=== PATIENT | male | born 1950 | race Caucasian/White ===

== ENCOUNTER → 2017-10-26 | Outpatient (CLI) | payer MEDICARE, BC | LOC: GMAL 17:49 | PROVIDERS: ATTEND Family Medicine | DX: N39.0 Urinary tract infection, site not specified (principal); M54.08 Panniculitis affecting regions of neck and back, sacral and sacrococcygeal region ==

== ENCOUNTER → 2017-10-26 | Outpatient (CLI) | payer MEDICARE, BC | LOC: LAB.O 17:18 | PROVIDERS: ATTEND Family Medicine | DX: Z77.9 Other contact with and (suspected) exposures hazardous to health (principal) ==

== ENCOUNTER → 2017-10-29 | Outpatient (CLI) | payer MEDICARE, BC | LOC: CT 08:00 | PROVIDERS: ATTEND Family Medicine | DX: M54.08 Panniculitis affecting regions of neck and back, sacral and sacrococcygeal region (principal); N28.1 Cyst of kidney, acquired; N20.0 Calculus of kidney; N26.1 Atrophy of kidney (terminal) ==

== ENCOUNTER → 2017-11-02 | Outpatient (CLI) | payer MEDICARE, BC ==
--- NOTE | 2017-10-29 14:09 | CT ---
EXAM DESCRIPTION: Abdomen/Pelvis w/wo Contrast: Computed Tomography. CLINICAL HISTORY: SUSPICIOUS OF RETAINED STONE IN COMMON BILE DUCT COMPARISON: None. TECHNIQUE: Spiral-axial scans at 5.0 mm intervals through the abdomen and pelvis before and after standard dose nonionic IV contrast. Water-soluble oral contrast was given prior to the pre-IV contrast scans. Coronal and sagittal 2.0 mm reconstructions. No delayed images. No adverse reactions. Total Exam DLP 2355.67 mGy - cm. This exam was performed according to our departmental CT dose-optimization program which includes automated exposure control, adjustment of the mA and/or kV according to patient size and/or use of iterative reconstruction technique; to reduce radiation dose to as low as reasonably achievable (ALARA). FINDINGS: Lung bases and pleura: Negative. Liver, Stomach, Spleen, Adrenal Glands: A string of oral contrast is noted abutting the medial mucosa of the second portion of the duodenum associated with distended lumen which terminates in fluid density that does not change from the pre-IV to post-IV scans. This fluid measures approximately 3 x 2 mm and also distends the duodenal lumen. The remainder of the duodenum is normal in caliber and density. Minimal intrahepatic biliary dilatation. Air density in the mikayla hepatis where gallbladder was previously located. The distal common bile duct may have a thickened wall with low-density in the lumen. Pancreas is unremarkable. Stomach negative, other solid organs are unremarkable. Kidneys and Ureters: Prominent right extrarenal pelvis. Probable parapelvic cysts but cannot exclude mild hydronephrosis. 2 mm radiodense stone in the inferior collecting system and 3.5 mm radiodense stone in the mid collecting system. Most likely parapelvic cysts in the left kidney with normal size of the renal pelvis. Minimal left renal cortical atrophy. Bilateral ureters normal caliber with no contrast or radiodense stones. Mesentery: Pararenal fatty density stable bilaterally. No free air or free fluid. Aorta: Tortuous with no significant amount of calcification and normal caliber. Small Bowel: Contains oral contrast distal jejunum and ileum no distention or air-fluid levels. Terminal Ileum/Cecum: Normal caliber TI and colon. Thickening of the mid and distal appendix measuring 10 mm greatest diameter and wall thickness 2.5 mm. No significant enhancement or fatty stranding or fluid collection around the appendix. No gas in the ligament or radiodense stones or contrast. Colon: Oral contrast reaches the descending colon and minimal contrast in the rectosigmoid. No dilation mucosal thickening or significant diverticular disease. Pelvic Organs: Prostate gland abutting the urinary bladder and seminal vesicles with minimal impression on the base of the urinary bladder. Spine and Bony Pelvis: Minimal hip joint space narrowing bilaterally. Narrowing of the L5-S1 disc space. Almost 1 cm round sclerotic lesion in the inferior lateral right iliac wing. Slightly smaller sclerotic lesion in the anterior superior right acetabulum. No other sclerotic lesions seen in the included pelvis, femoral heads are lumbosacral spine. Abdominal Wall/Back Soft Tissues: Bilateral fatty inguinal hernias not containing bowel. Minimal diastases at the umbilicus but not containing bowel. IMPRESSION: 1. Distention of the proximal duodenum by duodenal contents and fluid which may represent undigested food. Oral contrast along the mucosal lining abutting this tissue. Cannot exclude intraluminal or eccentric mucosal mass. If duodenal lesion is suspected clinically, consider upper GI examination or endoscopy. Most of the oral contrast is in the small bowel and stomach distal to this lesion. 2. Common bile duct with minimal wall thickening and low-density in the lumen. No significant distention. If stone suspected in the common bile duct, consider MRCP or ERCP. Minimal intrahepatic biliary dilatation. No pancreatic duct dilation. Pancreas is negative. 3. Bilateral parapelvic cysts in the kidney with prominent right extrarenal pelvis. No definite hydronephrosis. 2 radiodense stones in the right kidney. Mild cortical atrophy in the right kidney. Cannot exclude soft tissue pelvic ureteral obstructions bilaterally. Ureters are unremarkable. Consider follow-up CT scan of the kidneys and ureters with IV contrast and delayed images. 4. Elongated dilated appendix with thickened aguilar, no intraluminal gas or radiodense contrast or stones. No significant surrounding fatty stranding or fluid. This could represent chronic appendicitis or previous acute appendicitis without progression. Correlate with clinical findings. 5. Sclerotic lesion in the inferior right iliac wing and the anterior superior right acetabulum. These could represent benign sclerotic lesions are sclerotic metastatic lesions such as prostate gland. No other sclerotic lesions are noted in the included bony structures. Consider clinical evaluation of the prostate gland and radionuclide bone imaging with focus on the pelvic bone along with total body images. Electronically signed by: Víctor Costa MD 10/29/2017 2:08 PM CDT
--- NOTE | 2017-11-02 11:20 | US ---
EXAM DESCRIPTION: Abdomen,Complete CLINICAL HISTORY: ABD PAIN COMPARISON: CT abdomen and pelvis October 29, 2017 TECHNIQUE: Complete abdominal ultrasound FINDINGS: Pancreas is not seen due to overlying bowel gas. Normal caliber of the aorta. Normal appearance of the inferior vena cava. Liver parenchyma is homogeneous in texture with normal echogenicity. No liver mass or intrahepatic bile duct dilatation. No liver surface irregularity. Normal appearance of hepatic veins and portal vein. Gallbladder is not seen, centrally surgically absent. Common bile duct is normal in caliber measuring 4.0 mm. The right kidney measures 11.9 cm in length. Normal renal cortical echogenicity. The renal cortical thickness appears decreased near the upper pole consistent with focal scarring. No solid appearing right renal mass or shadowing stone. Lucency in the pelvis is consistent with prominent parapelvic cysts. This was seen on previous CT. This appearance is not thought to represent hydronephrosis. Spleen is normal in size. No focal splenic lesion. The left kidney measures 12.1 cm in length. Normal renal cortical echogenicity. The renal cortical thickness appears normal. No left renal mass nor shadowing stone. Smaller parapelvic cysts in the hilum of the left kidney are present. This appearance is not thought likely to represent hydronephrosis. IMPRESSION: Bilateral parapelvic renal cysts. Electronically signed by: Simón Jaquez MD 11/02/2017 11:18 AM CDT
== END ==
LOC: US 08:00
PROVIDERS: ATTEND Family Medicine
DX: M54.08 Panniculitis affecting regions of neck and back, sacral and sacrococcygeal region (principal); N28.1 Cyst of kidney, acquired

== ENCOUNTER → 2017-11-05 | Outpatient (CLI) | payer MEDICARE, BC | LOC: GMAL 12:28 | PROVIDERS: ATTEND Family Medicine | DX: Z12.5 Encounter for screening for malignant neoplasm of prostate (principal) ==

== ENCOUNTER 2019-11-19 10:11 | Observation (INO) | payer MEDICARE ==
[2019-11-19] MEDS ORDERED: fentaNYL CITRATE INJ 50 MCG/ML AMP IV ONE (10:29)
[2019-11-19] MEDS ORDERED: SODIUM CHLORIDE 0.9% 1000ML 1,000 ML IVS ONE (10:32)
[2019-11-19] MEDS ORDERED: ONDANSETRON INJ 4 MG/2 ML VIAL IV ONE ×2 (10:35→12:18)
--- NOTE | 2019-11-19 10:35 | ED.PDOC ---
History of Present Illness - General Chief Complaint: Abdominal Pain Time Seen by Provider: 11/19/19 10:24 - History of Present Illness Initial Comments: 69 yo male with recurrent common bile duct stones comes in with abdominal pain since 2 Am. Comes in with acute abdominal pain that woke him from his sleep at 2 AM. States he has had this pain before and it was common bile duct stones. Has had a cholecystectomy, but continues to get frequent common bile duct stones. Was originally sent to [facility], but sent to [place] to see Dr. Jose. Daugherty has placed 2 stents for this in the past, but currently he has no stents. Patient states he has a very small common bile duct, so this has been a reoccurring issue since 2014. Other than sob/n/v/pain. States he gets the episodes frequently, last one was 2 weeks ago. Has not called to follow up with Dr. Jose. Allergies/Adverse Reactions: Allergies Penicillins Allergy (Verified 11/19/19 10:41) Home Medications: Ambulatory Orders NK 11/19/19 Review of Systems - Review of Systems Constitutional: States: chills, malaise. Denies: diaphoresis, fever EENTM: Denies: eye pain, blurred vision, tearing Respiratory: States: short of breath. Denies: cough, orthopnea, stridor Cardiology: Denies: chest pain, edema, palpitations, syncope Gastrointestinal/Abdominal: States: abdominal pain, nausea, vomiting. Denies: diarrhea Genitourinary: Denies: discharge, dysuria, frequency Musculoskeletal: Denies: back pain, gout, joint pain, joint swelling, muscle pain, muscle stiffness Skin: Denies: change in color, dryness Neurological: Denies: anxiety, depressed, headache, numbness Endocrine: Denies: flushing Hematologic/Lymphatic: Denies: anemia All other Systems: Reviewed and Negative Family Medical History - Family History Mother Family History: Unknown Living Status: Unknown Physical Exam - Physical Exam General Appearance: Alert, Ill Appearing, Well Developed, Well Groomed Eye Exam: bilateral normal Ears, Nose, Throat: normal ENT inspection Neck: full range of motion, supple, normal inspection Respiratory: chest non-tender, lungs clear, normal breath sounds, no respiratory distress, no accessory muscle use Cardiovascular/Chest: normal peripheral pulses, no edema, no murmur, tachycardia Peripheral Pulses: radial,right: 2+, radial,left: 2+ Gastrointestinal/Abdominal: soft, no organomegaly, no pulsatile mass, tenderness, other - voluntary gaurding Rectal Exam: deferred Back Exam: normal inspection, no CVA tenderness, no vertebral tenderness Extremity: normal range of motion, non-tender Neurologic: medication specialist II-XII nml as tested, no motor/sensory deficits, alert Skin Exam: normal color, warm/dry Progress - Progress Progress: Vitals were all unremarkable, until 5 minutes after arrival patient had moderate amount of yellow/light green emesis. He briefly was awake, but not responding, no loss of pulses. Shortly after emesis he became hypoxic saturations 85%, we got a CTA chest and abdomen which was negative. CBC showed WBC 14, but otherwise unremarkable. lactic acid wnl. CMP showed a bili 1.5 but remaining liver enzymes were wnl. EKG shows NSR with rate 79, Left axis deviation, RBBB, no evidence of stemi. We have given him morphine, IVF, cipro and flagyl bc he's allergic to pcn. I called vocational training instructor doctor for Dr. Jose, Dr. Sams who states Dr. Jose is not in house for the next week and he does not have abilities to do ERCP. Pain has now resolved, but he continues to be hypoxic. Patient is stable and improved. Will admit for aspiration pneumonitis. The data reviewed when caring for this patient included: nurse notes etc. The history and assessments from nurses notes were reviewed and considered, and the patient's home medication list was also reviewed and considered. My assessment and the results of testing completed here in the ED were discussed with the patient/family. All questions were answered, and they express understanding of my assessment and the plan. Patient was admitted for observation. He is to call his GI doc in AM to set up follow up appointment, should he have recurrent abdominal pain he should be transferred where there is ERCP capabilities. Billing cod [id number] 11/19/19 14:26 11/19/19 16:09 11/19/19 16:16 - Additional EKG/XRAY/Consults Consult/PCP: Dr. Sams GI in [place] Departure - Departure Clinical Impression: Aspiration into respiratory tract, Abdominal pain Disposition: Discharge to Home or Self Care Condition: Good Home Medications: Ambulatory Orders NK 11/19/19 Decision To Admit - Decistion To Admit Decision to Admit Date: 11/19/19 - admit to [facility]
[2019-11-19] MEDS ORDERED: metroNIDAZOLE IV PREMIX 500MG 500 MG in PREMIX BAG 1 BAG IVPB ONE (11:58)
[2019-11-19] MEDS ORDERED: CIPROFLOXACIN 500 MG TAB (ER DISPENSE) PO ONE (11:59)
[2019-11-19] MEDS ORDERED: MORPHINE SULFATE INJ 10 MG/ML VIAL IV ONE (12:00)
[2019-11-19] MEDS ORDERED: CIPROFLOXACIN 500 MG TAB PO ONE (12:28)
--- NOTE | 2019-11-19 13:31 | CT ---
EXAM: CTA chest with contrast CLINICAL INDICATION: Chest pain, shortness of breath COMPARISON: None. TECHNIQUE: CTA of the chest was performed using contiguous axial 2.5mm postcontrast sections through the chest including IV contrast with 3-D reconstructions. This exam was performed according to our departmental dose-optimization program, which includes automated exposure control, adjustment of the mA and/or kV according to patient size and/or use of iterative reconstruction technique. FINDINGS: There is no evidence of pulmonary embolism. There are no findings to suggest aortic dissection. There are no enlarged mediastinal or hilar lymph nodes. The visualized portions of the upper abdominal structures are unremarkable except for peripelvic cysts in the bilateral kidneys. The lungs are clear except for mild bibasilar dependent subsegmental atelectasis. IMPRESSION: No evidence of pulmonary embolism or other acute process in the chest at this time. Electronically signed by: Jaiden Palencia MD 11/19/2019 1:29 PM CDT
--- NOTE | 2019-11-19 13:39 | CT ---
EXAM: Abdomen/Pelvis w/Contrast CLINICAL INDICATION: Abdominal pain. COMPARISON: 10/29/2017 TECHNIQUE: The CT scan was done using contiguous axial 5 mm postcontrast sections through the abdomen and pelvis including IV contrast. This exam was performed according to our departmental dose-optimization program, which includes automated exposure control, adjustment of the mA and/or kV according to patient size and/or use of iterative reconstruction technique. FINDINGS: The visualized portions of the lung bases contain mild subsegmental atelectasis but are otherwise clear. The gallbladder is surgically absent. The liver, spleen, pancreas, and adrenal glands have a normal CT appearance. There are multiple peripelvic cysts in both kidneys. There is a 3 mm nonobstructing stone in the right lower renal pole and a 5.0 x 4.0 mm nonobstructing stone in the right upper renal pole. There is no ureteral stone or hydronephrosis on either side. The kidneys are otherwise unremarkable. There are no dilated loops of small bowel. There is no free air, free fluid, or abscess. The appendix is not identified. IMPRESSION: 1. No evidence of an acute intra-abdominal process. 2. Nonobstructing stones in the right kidney. Electronically signed by: Jaiden Palencia MD 11/19/2019 1:37 PM CDT
--- NOTE | 2019-11-19 17:02 | HP ---
SUPERVISING PHYSICIAN: [place] Bran[place] MD CHIEF COMPLAINT: Abdominal pain. HISTORY OF PRESENT ILLNESS: This is a 69-year-old male patient who has a significant history of a narrowed common bile duct status post cholecystectomy as well as multiple bile duct stents. He presented to the Emergency Room with severe right upper quadrant abdominal pain. He has had this multiple times in the past and has required stents of his bile duct. They have had to be removed and every time they are removed, he has these abdominal pains. He sees Dr. Jose in [place]. The ER doctor called Dr. Jose's office and felt he was fine for staying overnight in the hospital. There were no orders given except for him to call Dr. Jose's office in the morning for followup. The patient says he gets these same symptoms about once a month when there are no stents present. He did have one episode of nausea and vomiting in the ER and shortly after, he become slightly unresponsive. His oxygen saturations dropped to 85%. Otherwise, his vital signs were stable and CT of the chest was done which showed no evidence of acute pulmonary embolism or other acute process in the chest. He also had an abdomen and pelvis CT done that reported 1) No evidence of acute intraabdominal process. 2) Nonobstructing stones in the right kidney. His lab work was done. WBCs were elevated at 14,000 with hemoglobin 14.3, hematocrit 40.7. He had had a left shift on his differential. Sodium 136, potassium 3.5, chloride 107, BUN 14, creatinine 1.43, lactic acid 1.2, total bilirubin 1.5, alkaline phosphatase 123, troponin less than 0.02. He was given a dose of Cipro as well as Flagyl in the ER. He was also given Zofran and some morphine as well as fentanyl. Due to the syncopal episode as well as his low oxygen saturation, I was called for hospital admission. PAST MEDICAL HISTORY: 1. Right lung collapse in 1952. 2. Gastroesophageal reflux disease. 3. Macular degeneration. The patient is legally blind. 4. Hypertension. PAST SURGICAL HISTORY: 1. Appendectomy. 2. Right knee surgery. 2. Cataracts. OUTPATIENT MEDICATIONS: Per the EMR and awaiting verification. ALLERGIES: PENICILLIN. FAMILY HISTORY: Positive for Alzheimer's breast cancer, uterine cancer, Crohn's disease. SOCIAL HISTORY: He is retired. 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 He is and has two children. He denies any ETOH, tobacco or illicit drug use. REVIEW OF SYSTEMS: All negative except as per history of present illness. There are no complaints at the time of examination once he was admitted to the hospital. PHYSICAL EXAMINATION: VITAL SIGNS: Temperature 97.7, heart rate 74, blood pressure 111/70, respiratory rate 18, O2 saturation 98% on room air. GENERAL: This is a 69-year-old patient lying in his hospital bed. He is in no acute distress. HEENT: Normocephalic, atraumatic. Pupils are equal and reactive. Oropharynx is clear. NECK: Supple without mass. RESPIRATORY: Essentially clear to auscultation bilaterally. CHEST: There is equal rise and fall of the chest with inspiration and expiration. CARDIOVASCULAR: Regular rate and rhythm. GASTROINTESTINAL: Abdomen is soft, nondistended. It is mildly tender in the right upper quadrant, but otherwise nontender. Bowel sounds are positive. NEUROLOGIC: Awake, alert and oriented times three. Cranial nerves II-XII are grossly intact as tested. LABORATORY: Labs and films are as per history of present illness. IMPRESSION: 1. Hypoxia after a brief loss of consciousness. 2. Abdominal pain with significant history of pain due to clogged bile duct. He is status post cholecystectomy as well as multiple stents to the bile duct. 3. Gastroesophageal reflux disease. 4. Macular degeneration. He is legally blind. PLAN: We will place the patient in observation. We will monitor his neuro status overnight as well as his O2 saturations. According to his GI doctor in [place], he is to call for a followup as soon as he is out of the hospital in the morning. Initially, I had made him NPO, but since he had no further nausea, vomiting or abdominal pain, we will give him some bland diet and repeat his labs in the morning. I have also put him on proton pump inhibitor for ulcer prophylaxis. Hopefully, he can be discharged tomorrow, so I will hold off on DVT prophylaxis. We will continue to monitor the patient closely and follow as needed. #[id number] [facility]
[2019-11-19] MEDS ORDERED: SODIUM CHLORIDE 0.9% (FLUSH) 10 ML SYG IV PRN (17:18)
[2019-11-19] MEDS ORDERED: MORPHINE SULFATE INJ 10 MG/ML VIAL IV PRN (17:20)
[2019-11-19] MEDS ORDERED: ONDANSETRON INJ 4 MG/2 ML VIAL IV PRN (17:20)
[2019-11-19] MEDS ORDERED: PROMETHAZINE HCL INJ 25 MG in SODIUM CHLORIDE 0.9% 50ML 50 ML IVPB PRN (17:23)
[2019-11-19] MEDS ORDERED: IV SET AND CAP CHANGE INJ INJ SCH (17:30)
[2019-11-19] MEDS ORDERED: PANTOPRAZOLE SODIUM IV 40 MG VIAL ONE (18:59)
[2019-11-19] MEDS ORDERED: KCL 20MEQ/D5 1/2NS 1,000 ML IVS ONE (19:00)
[2019-11-19] MEDS: KCL 20MEQ/D5 1/2NS 1,000 ML IVS PRN (19:15)
[2019-11-19] MEDS ORDERED: cloNIDine HCL 0.1 MG TAB ONE (20:32)
[2019-11-19] MEDS ORDERED: LISINOPRIL 10 MG TAB ONE (20:32)
[2019-11-20] MEDS: KCL 20MEQ/D5 1/2NS 1,000 ML IVS PRN ×2 (02:58→11:38)
[2019-11-20] MEDS ORDERED: cefTRIAXone SODIUM 1 GM in SODIUM CHL 0.9% 50ML MIN-BAG+ 50 ML IVPB SCH (04:00)
[2019-11-20] MEDS ORDERED: SODIUM CHL 0.9% 50ML MIN-BAG+ 50 ML IVPB ONE (04:00)
[2019-11-20] MEDS ORDERED: cefTRIAXone SODIUM 1 GM VIAL ONE (04:00)
[2019-11-20] MEDS: PANTOPRAZOLE SODIUM IV 40 MG VIAL IV SCH (06:08)
--- NOTE | 2019-11-20 07:05 | RAD ---
EXAM: XR Chest, 2 Views CLINICAL HISTORY: hypoxia TECHNIQUE: Frontal and lateral views of the chest. COMPARISON: 11/19/2019. FINDINGS: Lungs: Stable coarse interstitial thickening. Slight increased right middle and lower lobe atelectasis. Pleural space: Unremarkable. No pneumothorax. Heart: Stable cardiac shadow. Mediastinum: Unremarkable. Bones/joints: Unremarkable. IMPRESSION: Stable coarse interstitial thickening. Slight increased right middle and lower lobe atelectasis. Electronically signed by: Rachael Lewis MD 11/20/2019 7:04 AM CDT
[2019-11-20] MEDS ORDERED: SODIUM CHLORIDE 0.9% (FLUSH) 10 ML SYG IV ONE (12:16)
[2019-11-20] MEDS: metroNIDAZOLE IV PREMIX 500MG 500 MG in PREMIX BAG 1 BAG IVPB SCH ×2 (12:23→20:23)
[2019-11-20] MEDS ORDERED: levoFLOXacin 500MG IV 100 ML IVPB ONE (12:26)
[2019-11-20] MEDS: levoFLOXacin 500MG IV 500 MG in PREMIX BAG 1 BAG IVPB SCH (13:11)
--- NOTE | 2019-11-20 18:14 | PN ---
SUPERVISING PHYSICIAN: Brent Tucker M.D. DATE: 10/2719 SUBJECTIVE: The patient has not had any pain since admission. He did have a positive blood culture last night which showed a gram negative jose martin preliminary on the gram stain. He has had no fever. No nausea or vomiting. OBJECTIVE: VITAL SIGNS: Temperature 98.5, pulse 74, blood pressure 121/68, respirations 18, satting 94% on room air. GENERAL: The patient is resting comfortably. Does not appear to be in any acute distress. CHEST: Lung sounds are clear to auscultation bilaterally. HEART: Regular rate and rhythm. ABDOMEN: Soft, non-tender. Positive bowel sounds. EXTREMITIES: Without any edema. NEUROLOGIC: He is alert and oriented times three. LABORATORY: White count now has normalized to 9,700, hemoglobin 14, hematocrit 39.9, platelet count 234,000. Differential shows resolving left shift. Chemistries show normal electrolytes with BUN 11, creatinine 1.22. Blood sugar was 117, lactic acid 1.2 last night with bilirubin today at 1.5. AST, ALT and alkaline phosphatase were normal. Lipid panel showed triglycerides of 34, cholesterol 130, LDL was 43 and HDL 61. Amylase and lipase were both normal from last night's specimen. Urinalysis today showed to be within normal limits with no signs of infectious process. Blood culture: He had a positive blood culture in the anaerobic bottle for a gram negative jose martin preliminary on gram stain. RADIOLOGY: Chest x-ray per radiology interpretation shows stable coarse interstitial thickening with slight increase right middle and lower lobe atelectasis. ASSESSMENT: 1. Gram negative jose martin bacteremia, etiology uncertain, possibly related to common bile duct with the patient having a history of choledocholithiasis in the past requiring stent placement. 2. Gastroesophageal reflux disease. 3. Macular degeneration with the patient being legally blind. PLAN: I did try to discuss the case with his GI specialist but was unable to do so as Dr. Jose actually has not seen the patient other than just doing an ERCP. He was seen previously at [place] by Dr. Martinez. Review of his records showed that he has not seen a GI specialist since the first of last year. I did discuss CT findings with Dr. Costa, the radiologist here, who did not see any other additional findings other than what was reported on the initial reading. I also discussed the case with Dr. Rivera, Dr. Branham and Dr. Tucker. At this point, the plan of care is to continue with coverage for gram negative jose martin bacteremia with Levaquin and Flagyl. As soon as the patient has a completed culture and sensitivity so that we can target antibiotic therapy with oral antibiotics, will discharge home to followup with Dr. Rivera and Dr. Tucker next week as well as schedule for an outpatient MRCP on discharge. At this point he is showing to be stable and will await those culture results. Until we can transition to outpatient management will continue to monitor and treat as needed. #[id number] [facility]
[2019-11-20] MEDS ORDERED: INSULIN LISPRO 100 UNITS/ML PEN SUBCU ONE (21:00)
[2019-11-20] MEDS ORDERED: ACETAMINOPHEN 325 MG TAB PO PRN (23:25)
[2019-11-20] MEDS ORDERED: KCL 20MEQ/0.45% NS 1,000 ML IVS ONE (23:26)
[2019-11-21] MEDS ORDERED: cefTRIAXone SODIUM 2 GM in SODIUM CHL 0.9% 100ML MINI-BAG 100 ML IVPB SCH (04:00)
[2019-11-21] MEDS: metroNIDAZOLE IV PREMIX 500MG 500 MG in PREMIX BAG 1 BAG IVPB SCH ×2 (04:05→12:05)
[2019-11-21] MEDS: PANTOPRAZOLE SODIUM IV 40 MG VIAL IV SCH (06:07)
[2019-11-21] MEDS ORDERED: MAGNESIUM HYDROXIDE 30 ML UD PO ONE (12:09)
[2019-11-21] MEDS: levoFLOXacin 500MG IV 500 MG in PREMIX BAG 1 BAG IVPB SCH (13:17)
[2019-11-21 15:01] VITALS: BP 124/68; TEMP 98.1; O2SAT 95
[2019-11-21] MEDS ORDERED: levoFLOXacin 500 MG TAB PO SCH (15:30)
[2019-11-22] MEDS ORDERED: PANTOPRAZOLE SODIUM TAB 40 MG PO SCH (06:30)
--- NOTE | 2019-11-28 14:24 | DS ---
SUPERVISING PHYSICIAN: Brent Tucker MD ADMISSION DIAGNOSIS: 1. Hypoxia after a brief loss of consciousness. 2. Abdominal pain with significant history of pain due to clogged bile duct. He is status post cholecystectomy as well as multiple stents to the bile duct. 3. Gastroesophageal reflux disease. 4. Macular degeneration. He is legally blind. DISCHARGE DIAGNOSIS: 1. Gram negative jose martin bacteremia, etiology uncertain with final cultures results showing a Klebsiella pneumoniae that was pansensitive essentially to all but ampicillin. It was sensitive to Levaquin. Please see that report for details. 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 2. Gastroesophageal reflux disease. 3. Macular degeneration with the patient being legally blind. REASON FOR HOSPITALIZATION: This is a 69-year-old male patient who has a significant history of a narrowed common bile duct status post cholecystectomy as well as multiple bile duct stents. He presented to the Emergency Room with severe right upper quadrant abdominal pain. He has had this multiple times in the past and has required stents of his bile duct. They have had to be removed and every time they are removed, he has these abdominal pains. He sees Dr. Jose in [place]. The ER doctor called Dr. Jose's office and felt he was fine for staying overnight in the hospital. There were no orders given except for him to call Dr. Jose's office in the morning for followup. The patient says he gets these same symptoms about once a month when there are no stents present. He did have one episode of nausea and vomiting in the ER and shortly after, he become slightly unresponsive. His oxygen saturations dropped to 85%. Otherwise, his vital signs were stable and CT of the chest was done which showed no evidence of acute pulmonary embolism or other acute process in the chest. He also had an abdomen and pelvis CT done that reported 1) No evidence of acute intraabdominal process. 2) Nonobstructing stones in the right kidney. His lab work was done. WBCs were elevated at 14,000 with hemoglobin 14.3, hematocrit 40.7. He had had a left shift on his differential. Sodium 136, potassium 3.5, chloride 107, BUN 14, creatinine 1.43, lactic acid 1.2, total bilirubin 1.5, alkaline phosphatase 123, troponin less than 0.02. He was given a dose of Cipro as well as Flagyl in the ER. He was also given Zofran and some morphine as well as fentanyl. Due to the syncopal episode as well as his low oxygen saturation, I was called for hospital admission. LABORATORY: CBC showed white count on discharge of 9,700, hemoglobin 14, hematocrit 39.4, platelet count 234,000. Differential was without a left shift on discharge. Chemistries showed normal electrolytes. Creatinine 1.22, lactic acid normal at 1.2, calcium 8.2, total bilirubin was elevated initially at 1.5, but was near normal levels at 1.1 on discharge. AST, ALT and alkaline phosphatase were normal at discharge. Troponin was less than 0.02. He did have a little elevated alkaline phosphatase at 123 on admission, but did normalize. Amylase and lipase were within normal limits. Urinalysis was within normal limits. MICROBIOLOGY: Blood cultures positive involving the anaerobic bottle only and that grew out Klebsiella pneumoniae. It was essentially pansensitive only showing resistance to ampicillin. His respiratory panel was negative for all viral and bacterial agents tested, none detected. The rest of his blood cultures remained negative after 5 days. RADIOLOGY: He had a CT of the chest which showed no evidence of pulmonary embolism or other acute process within the chest. He also had an abdominopelvic CT with contrast that showed no evidence of acute intraabdominal process, nonobstructing stones in the right kidney. Chest x-ray on discharge showed stable coarse interstitial thickening, slightly increased in right middle and lower lobe atelectasis. EKG in the Emergency Room showed normal sinus rhythm with right bundle branch block. No ST or T-wave changes noted to indicate acute ischemia. HOSPITAL COURSE: Mr. Shah was admitted and treated for gram negative jose martin bacteremia. The source was actually never identified although question was possible prostate, but urine was clean. He had no other complaints, no signs of actual pneumonia. Given that he had a history of choledocholithiasis and had previous stents, there was concern that he possibly could be having a source of infection resulting from there, however, nothing was shown on the acute imaging that was done prior to discharge. He did have an MRI scheduled for the following Wednesday after discharge. That is still pending. After discussion with Dr. Tucker, it was felt the patient was clinically stable and could be discharged with continued treatment with Levaquin and Flagyl and followup MRI and followup with Dr. Tucker the week after discharge. Again, his MRI is scheduled for 11/27/19. Those results will be referred to Dr. Tucker. He was clinically stable and vital signs showed he was afebrile with temperature 98.1, pulse 74, blood pressure 124/68, respirations 95. He was tolerating an oral diet. He was having no pain, no complaints and was felt clinically stable enough to followup as an outpatient. I did also discuss the case with Dr. Rivera, his primary care provider. PLAN: Mr. Shah was discharged to continue with treatment as an outpatient for treatment of gram negative jose martin bacteremia with prescriptions for Flagyl and Levaquin. He was to resume his usual diet as tolerated, increase activity as tolerated and was scheduled to have an MRI done on the following Wednesday after discharge. He is to followup with Dr. Tucker as Dr. Rivera is out of the office this following week on discharge and told to return to the Emergency Department should he have any concerning symptoms. MEDICATIONS PRESCRIBED ON DISCHARGE: 1. Flagyl 500 mg q.8h., #15, no refills. 2. Levaquin 500 mg, #14, no refills. CONDITION ON DISCHARGE: Stable and improving. DISPOSITION: The patient was discharged home. #[id number] [facility]
== END 2019-11-21 17:55 | disposition home or self-care (01) ==
LOC: ER 10:11 → MS 17:01
PROVIDERS: ADMIT Nurse Practitioner Acute Care; ATTEND Nurse Practitioner Family
DX: R78.81 Bacteremia (principal); B96.89 Other specified bacterial agents as the cause of diseases classified elsewhere; R10.11 Right upper quadrant pain; K21.9 Gastro-esophageal reflux disease without esophagitis; H35.30 Unspecified macular degeneration; H54.8 Legal blindness, as defined in USA; R09.02 Hypoxemia; R11.2 Nausea with vomiting, unspecified; I10 Essential (primary) hypertension; J98.11 Atelectasis; N20.0 Calculus of kidney; I45.10 Unspecified right bundle-branch block; Z90.49 Acquired absence of other specified parts of digestive tract
CPT/HCPCS: 96366 ×3; 96367 ×2; 96365; 96375 ×2; 96376 ×3; J0696; J3010; J1956 ×2; J3490 ×5; J2270; J2405 ×2; J2550; J7030; A4216; J3480; J1815; J7050; 80053 ×2; 80061; 36415 ×6; 82150; 87077; 87186; 81001; 85025 ×2; 87040 ×2; 83690; 84484; 83605; 71046; 71275; 74177; 94760 ×2; 99285; 93005; G0378; 87635

== ENCOUNTER → 2019-11-27 | Outpatient (CLI) | payer MEDICARE ==
--- NOTE | 2019-11-27 14:06 | MRI ---
CLINICAL HISTORY PROVIDED: GASTRO ESOPHAGEAL REFLUX DISEASE TECHNIQUE: Multiplanar, multisequence MR images of the abdomen. MRCP images provided. COMPARISON: November 19, 2019 FINDINGS: Visualized lung bases are unremarkable. Hepatic lesion. No biliary dilatation. Cholecystectomy. Normal caliber portal vein. No biliary filling defect or irregularity. The spleen, pancreas and adrenal glands are unremarkable. Bilateral peripelvic cysts. No hydronephrosis. Normal renal contours. The visualized bowel is unremarkable without evidence of obstruction or focal inflammatory change. No adenopathy. No focal fluid collection. Normal caliber abdominal aorta. No focal marrow signal abnormality. IMPRESSION: Unremarkable MRI abdomen. Electronically signed by: Spencer Mcadams MD 11/27/2019 2:05 PM CDT
== END ==
LOC: MRI 08:00
PROVIDERS: ATTEND Nurse Practitioner Family
DX: K21.0 Gastro-esophageal reflux disease with esophagitis (principal)

== ENCOUNTER → 2019-12-05 | Outpatient (CLI) | payer MEDICARE | LOC: GMAL 17:10 | PROVIDERS: ATTEND Family Medicine | DX: D51.3 Other dietary vitamin B12 deficiency anemia (principal); E83.42 Hypomagnesemia; E55.9 Vitamin D deficiency, unspecified; Z12.5 Encounter for screening for malignant neoplasm of prostate; Z79.899 Other long term (current) drug therapy; I10 Essential (primary) hypertension | CPT/HCPCS: 82607; 83735; 84443; G0103 ==

== ENCOUNTER 2020-01-29 11:05 | Inpatient (IN) | payer MEDICARE ==
[2020-01-29] MEDS ORDERED: ONDANSETRON INJ 4 MG/2 ML VIAL IV ONE ×2 (11:26→17:49)
[2020-01-29] MEDS ORDERED: SODIUM CHLORIDE 0.9% 1000ML 1,000 ML IVS ONE ×3 (11:26→14:30)
[2020-01-29] MEDS ORDERED: SODIUM CHLORIDE 0.9% (FLUSH) 10 ML SYG IV PRN ×2 (11:26→17:45)
--- NOTE | 2020-01-29 11:27 | ED.PDOC ---
History of Present Illness - General Chief Complaint: Abdominal Pain Stated Complaint: abdominal pain Time Seen by Provider: 01/29/20 11:25 Source: patient - History of Present Illness Initial Comments: 69 yo male with PMH of GERD, s/p cholecystectomy (2017) who presents with cc of abdominal pain. Patient reports he had some eggs last night for dinner and went to sleep in his usual state of health. He reports he woke up at 4 AM today with sudden new onset of abdominal pain, located all across the upper abdomen, sharp and "like a muscle cramp", radiates to the, constant with waxing and waning corazon rity, currently 6/10 severity, at worst 10/10 severity earlier, no medications taken for relief. He reports also associated muscular pain throughout his entire body, subjective fevers and chills, nausea with 2 episodes of mild green emesis, mild dyspnea. Denies chest pain, sore throat, leg swelling, or cough. Additionally reports chronic symptoms of nocturia. Patient reports he had his gallbladder removed [address] Ríos in [place]. Since then he has had recurrent episodes similar to now of this pain. He has been seeing Dr. Jose (GI) in at [facility] for this issue. He has had issues with his CBD and has has stents placed before. He recently had ERCP 1 month ago in [place] which was unremarkable. PCP is Dr. Rivera. Allergies/Adverse Reactions: Allergies Penicillins Allergy (Verified 01/29/20 11:22) Home Medications: Ambulatory Orders NK 01/29/20 Review of Systems - Review of Systems Review of Systems: 01/29/20 11:53 as per HPI All other Systems: Reviewed and Negative Past Medical History (General) - Patient Medical History Hx Seizures: No Hx Stroke: No Hx Dementia: No Hx Asthma: No Hx of COPD: No Hx Cardiac Disorders: No Hx Congestive Heart Failure: No Hx Pacemaker: No Hx Hypertension: No Hx Thyroid Disease: No Hx Diabetes: No Hx Gastroesophageal Reflux: No Hx Renal Disease: No Hx Cancer: No Hx of HIV: No Hx Hepatitis C: No Hx MRSA: No MRSA Source:: Wound Surgical History: cholecystectomy - Vaccination History Hx Influenza Vaccination: No Hx Pneumococcal Vaccination: No - Social History Hx Tobacco Use: No Hx Alcohol Use: No Hx Substance Use: No Hx Physical Abuse: No Hx Emotional Abuse: No Family Medical History - Family History Mother Family History: Unknown Living Status: Unknown Physical Exam - Physical Exam General Appearance: Alert, Restless Eye Exam: bilateral normal Ears, Nose, Throat: hearing grossly normal, normal ENT inspection, normal pharynx Neck: non-tender, full range of motion, supple, normal inspection Respiratory: chest non-tender, lungs clear, normal breath sounds, no respiratory distress, no accessory muscle use Cardiovascular/Chest: normal peripheral pulses, no edema, no gallop, no JVD, no murmur, tachycardia Peripheral Pulses: radial,right: 2+, radial,left: 2+ Gastrointestinal/Abdominal: normal bowel sounds, non tender, soft, no organomegaly Back Exam: normal inspection, no CVA tenderness, no vertebral tenderness Extremity: normal range of motion, non-tender, normal inspection, no pedal edema, no calf tenderness, normal capillary refill Neurologic: drafter tool design II-XII nml as tested, no motor/sensory deficits, alert, normal mood/affect, oriented x 3 Skin Exam: normal color, warm/dry Progress - Progress Progress: 01/29/20 11:54 Acute abdominal pain -Sepsis, acute cholangitis, acute pancreatitis, pyelonephritis, UTI, intra- abdominal abscess, gastroenteritis, colitis, ischemic colitis, bowel obstruction, ACS/cardiac, pneumonia, other -Patient with tachycardia upon arrival, afebrile, blood pressure stable -Obtain sepsis work-up, cardiac work-up, abdominal work-up, anticipate CT abdomen pelvis -Place PIV, 2 L normal saline bolus, fentanyl 50 mcg IV, Zofran 4 mg IV 01/29/20 15:30 -Labs concerning for serum WBC 16,000 with left shift, lactate 1.3. CMP reveals total bilirubin 1.8 with 0.5 direct, 1.3 indirect. Alk phos 149, AST and ALT slightly elevated. -CT scan reveals only some evidence of submucosal edema of the Right colon, which is nonspecific and may be evident of colitis. No other acute processes noted. -Surgery consulted here regarding the patient who reviewed the patient's labs and CAT scan. Recommended GI consultation. I placed a phone call to Dr. Jose's clinic in [place] but have not heard back yet. Will try calling them back. Pt remains stable, pt well-controlled. 01/29/20 15:58 -Spoke with Dr. Jose at [facility] who states his ERCP 1 month ago was clean. I informed him of the patient's current state as well as abnormal labs including leukocytosis, elevated bilirubin, elevated alk phos, elevated transaminases. He recommends that the patient be admitted here with IV antibiotics of Levaquin along with IV fluids and as needed medications for pain and nausea. He suggests to trend the LFT's and if worsening or patient's clinical condition worsens then he could be transferred for GI consultation but does not feel transfer is warranted at this point. If pt is improving and labs improving, he may go home on oral Levaquin. Will discuss with our hospitalist here the situation for possible admission. -Dr. Jose provided his phone number in case the hospitalist wanted to reach him at any time. [phone] (cell) 01/29/20 16:09 -Spoke with Naomi Amador who accepts patient for admission. Petar Vera MD Billing #[id number] 01/29/20 11:26 IV Care:Saline Lock per Protoc QSHIFT Sodium Chloride 0.9% (Flush) [Saline Flush Syringe] 10 ml IV PRN PRN 01/29/20 11:30 EKG STAT 01/29/20 12:04 Hold Metformin x 48Hrs [id number] 01/29/20 12:12 BLOOD CULTURE Stat Laboratory Results - last 24 hr 01/29/20 01/29/20 01/29/20 11:25 11:25 12:05 WBC 16.3 H RBC 4.36 L Hgb 14.9 Hct 41.5 L MCV 95.3 H MCH 34.2 H MCHC 35.9 RDW 13.2 Plt Count 243 MPV 7.0 L Absolute Neuts (auto) 15.30 H Absolute Lymphs (auto) 0.40 L Absolute Monos (auto) 0.60 Absolute Eos (auto) 0.00 Absolute Basos (auto) 0.10 Neutrophils % 93.3 H Lymphocytes % 2.5 L Monocytes % 3.8 Eosinophils % 0.0 L Basophils % 0.4 Sodium 136 Potassium 3.4 L Chloride 104 Carbon Dioxide 21 Anion Gap 14.4 BUN 14 Creatinine 1.05 BUN/Creatinine Ratio 13.3 Random Glucose 139 H Serum Osmolality 274.7 L Lactic Acid 1.3 Calcium 9.1 Total Bilirubin 1.8 H Direct Bilirubin 0.5 H Indirect Bilirubin 1.3 H AST 104 H ALT 108 H Alkaline Phosphatase 149 H Serum Total Protein 6.6 Albumin 4.1 Amylase 46 Lipase 27 Urine Color Urine Appearance Urine pH Ur Specific [place] Urine Protein Urine Glucose (UA) Urine Ketones Urine Blood Urine Nitrite Urine Bilirubin Urine Urobilinogen Ur Leukocyte Esterase Urine RBC Urine WBC Ur Epithelial Cells Amorphous Sediment Urine Bacteria Urine Mucus 01/29/20 15:28 WBC RBC Hgb Hct MCV MCH MCHC RDW Plt Count MPV Absolute Neuts (auto) Absolute Lymphs (auto) Absolute Monos (auto) Absolute Eos (auto) Absolute Basos (auto) Neutrophils % Lymphocytes % Monocytes % Eosinophils % Basophils % Sodium Potassium Chloride Carbon Dioxide Anion Gap BUN Creatinine BUN/Creatinine Ratio Random Glucose Serum Osmolality Lactic Acid Calcium Total Bilirubin Direct Bilirubin Indirect Bilirubin AST ALT Alkaline Phosphatase Serum Total Protein Albumin Amylase Lipase Urine Color Yellow Urine Appearance Clear Urine pH 6.5 Ur Specific [place] 1.015 Urine Protein Negative Urine Glucose (UA) Negative Urine Ketones Negative Urine Blood Negative Urine Nitrite Negative Urine Bilirubin Negative Urine Urobilinogen 0.2 Ur Leukocyte Esterase Negative Urine RBC 0-1 Urine WBC 0 Ur Epithelial Cells 0 Amorphous Sediment 1+ Urine Bacteria 0 Urine Mucus Moderate - EKG/XRAY/CT EKG: Sinus - Sinus tachycardia with right bundle branch block, heart rate 110, no ST elevations, Q waves noted in inferior leads likely indicative of prior FL, left axis deviation present, intervals normal, compared to 11/19/2019 EKG appears largely unchanged. Departure - Departure Clinical Impression: Colitis, Transaminitis, Hyperbilirubinemia Time of Disposition: 16:14 Disposition: Admit Patient Condition: Fair Departure Forms: ED Discharge - Pt. Copy, Patient Portal Self Enrollment Instructions: DI for Abdominal Pain-Adult Diet: low fat, low cholesterol Referrals: Hiren Rivera III, MD [Primary Care Provider] - 1-2 Weeks Home Medications: Ambulatory Orders NK 01/29/20 Decision To Admit - Decistion To Admit Decision to Admit Reason: Admit from ER Decision to Admit Date: 01/29/20 Decision to Admit Time: 16:14
[2020-01-29] MEDS ORDERED: fentaNYL CITRATE INJ 50 MCG/ML 2 ML AMP IV ONE ×4 (11:48→16:50)
--- NOTE | 2020-01-29 13:29 | CT ---
EXAM DESCRIPTION: CT ABDOMEN AND PELVIS WITH CONTRAST CLINICAL HISTORY: acute upper abdominal pain, sepsis COMPARISON: November 19, 2019, October 29, 2017 TECHNIQUE: CT of the abdomen and pelvis are performed during IV bolus administration of nonionic contrast. Oral contrast media was not administered. This exam was performed according to our departmental dose-optimization program, which includes automated exposure control, adjustment of the mA and/or kV according to patient size and/or use of iterative reconstruction technique. FINDINGS: The left lung is clear and residual pleural and parenchymal scarring and interstitial change in the posterior right lung base is little changed from previous October examination. The liver is normal in size shape and appearance and enhances normally without cystic or solid mass. Small normal spleen. Fatty infiltrated pancreas without acute changes of pancreatitis or cystic or solid mass. No pancreatic ductal dilation. Prior cholecystectomy with normal caliber common duct with a tiny bubble of air within the duct. This is unchanged from prior study and suggests the possibility of previous sphincterotomy. No intrahepatic ductal air noted. Small normal adrenal glands. Bilateral parapelvic cysts, unchanged from previous study and more prominent on the right than the left with stable small nonobstructing calculi in the mid and lower pole of the right kidney. This appearance unchanged from prior 2018 studies with small right intrarenal calculi slightly larger in appearance than previously seen Incompletely distended stomach and stool-filled colon with no evidence of large or small bowel obstruction. Surgical suture row adjacent to the tip of the cecum suggest prior appendectomy. Cecum and distended with air and fecal material. Collapse of the right colon with what appears to be an element of submucosal edema. An element of right-sided colitis should be considered. This does not extend into the transverse or left colon or sigmoid colon. Partially distended bladder and moderate prostatic hypertrophy. Symmetric seminal vesicles. Tortuous aorta with calcification without aneurysm and normal iliac and inguinal vessels. No pelvic sidewall no abdominal or pelvic ascites or evidence of bowel perforation. Anterior abdominal wall appears intact without hernia. No inguinal masses evident. Age-appropriate mild degenerative changes in the lumbar spine and pelvis. IMPRESSION: 1. Prior cholecystectomy with normal caliber biliary ductal system with a tiny amount of air in the biliary tract suggesting prior sphincterotomy. This has been previously noted on previous examinations. 2. Bilateral parapelvic renal cysts with nonobstructing two small calculi right kidney without hydronephrosis. 3. Surgical changes suggesting probably prior appendectomy. 4. Submucosal edema involving the right colon above the cecum to the level of the hepatic flexure. An element of colitis should be considered without perforation or abscess. 5. Prostatic hypertrophy without evidence of bladder outlet obstruction or marked distention of the bladder. 6. Stable mild scarring and/or fibrotic changes posterior right lung base, little changed from 2019 examination but new from October 2017 study. Interval scarring and pneumonitis suspected. Electronically signed by: North Whiting MD 01/29/2020 1:27 PM CDT
--- NOTE | 2020-01-29 13:32 | RAD ---
EXAM DESCRIPTION: Chest,1 View CLINICAL HISTORY: 69 years Male, upper abdominal pain and back pain COMPARISON: None. TECHNIQUE: AP portable chest. FINDINGS: Single view of the chest demonstrates mildly elevated right hemidiaphragm with crowded markings. Focal minimal patchy density in the right parahilar region suggests minimal inflammation in the right lung base. Some of this appears to have been present on prior October examination. The left lung remains clear. Heart size is normal with normal vascularity with calcified tortuous aortic arch and descending aorta. The hilar and mediastinal structures are unremarkable. IMPRESSION: Mildly elevated right hemidiaphragm with minimal hazy density right lower lung field parahilar region suggesting minimal inflammation or scarring. Otherwise negative chest one view. Electronically signed by: North Whiting MD 01/29/2020 1:29 PM CDT
[2020-01-29] MEDS ORDERED: fentaNYL CITRATE INJ 50 MCG/ML 2 ML AMP ONE (13:50)
[2020-01-29] MEDS ORDERED: metroNIDAZOLE IV PREMIX 500MG 500 MG in PREMIX BAG 1 BAG IVPB ONE (13:53)
[2020-01-29] MEDS ORDERED: levoFLOXacin 500MG IV 500 MG in PREMIX BAG 1 BAG IVPB ONE (16:13)
--- NOTE | 2020-01-29 16:36 | HP ---
SUPERVISING PHYSICIAN: Tenzin Urias MD CHIEF COMPLAINT: Abdominal pain. HISTORY OF PRESENT ILLNESS: This is a 69-year-old male patient who has no significant medical history other than gastroesophageal reflux disease who presented to the Emergency Room with complaints of abdominal pain. He had been in his usual state of health and he woke up at 4 AM today with a sudden onset of abdominal pain located across the upper abdomen. It was sharp with muscle like cramps. It radiated to his right upper quadrant and there was associated nausea with mild green emesis, fever and chills and mild shortness of breath. There was no chest pain. He actually had his gallbladder out about 3 years ago in [place]. He has had several episodes of similar pain and has been seeing a GI doctor in the [facility], Dr. Jose. He has had issues with his common bile duct since. The ER doctor called Dr. Jose and he had an ERCP about a month ago in [place] that was unremarkable. His initial vital signs showed temperature 96, heart rate 119, blood pressure 149/77, respiratory rate 20, O2 saturation 94%. Labs showed WBC 16,300, hemoglobin 14.9, hematocrit 41.5. He had a left shift on his differential. Chemistries are basically unremarkable with the exception of his potassium was slightly low at 3.4. Lactic acid 1.3, total bilirubin 1.8, direct bilirubin 0.5, indirect bilirubin 1.3. AST 104, ALT 108, alkaline phosphatase 149. The ER doctor voiced his concerns about his elevated liver enzymes as the patient has not had those elevated in his past visits to this hospital. Blood cultures were drawn. Chest x-ray was done and showed a mild elevated right hemidiaphragm with minimal hazy density right lower lung field, perihilar region suggesting minimal inflammation or scarring. Otherwise negative one-view chest. Abdomen and pelvis CT showed 1) Prior cholecystectomy with normal caliber biliary ductal system with tiny amount of air in the biliary tract suggesting prior sphincterotomy. This has been noted on previous exams. 2) Bilateral parapelvic renal cysts with nonobstructing 2 small calculi right kidney without hydronephrosis. 3) Surgical changes suggesting prior probable appendectomy. 4) Submucosal edema involving the right colon above the cecum to the level of the hepatic flexure. An element of colitis should be considered without perforation or abscess. 5) Prostatic hypertrophy without evidence of bladder outlet obstruction or marked distention of the bladder. 6) Stable mild scarring and/or fibrotic changes posterior right lung base, little change from 2019 examination, but new from October 2017 study. Interval scarring and pneumonitis suspected. All the findings were given to Dr. Jose and he felt the patient could be admitted to the hospital and his liver functions watched. He also said he would gladly accept the patient in transfer if the liver enzymes continued to elevate or the clinical status of the patient worsened. I was called for hospital admission. I did ask for a COVID-19 test, but that inadvertently was not done and he was admitted to the hospital in stable condition. PAST MEDICAL HISTORY: 1. Right lung collapse in 1952. 2. Gastroesophageal reflux disease. 3. Macular degeneration. The patient is legally blind. 4. Mild hypertension, presently on no medications. PAST SURGICAL HISTORY: 1. Appendectomy. 2. Right knee surgery. 3. Cataract. 4. Cholecystectomy. OUTPATIENT MEDICATIONS: Per the EMR and awaiting verification. ALLERGIES: PENICILLIN. FAMILY HISTORY: Positive for Alzheimer's, breast cancer, uterine cancer, Crohn's disease. SOCIAL HISTORY: He is retired. He is . He has 2 children. There is no history of tobacco, ETOH or illicit drug use. REVIEW OF SYSTEMS: GENERAL: Positive for fever and chills. Negative for weight changes. HEENT: Negative for sinus symptoms, ear pain, vision changes or sore throat. RESPIRATORY: Positive for shortness of breath. Negative for wheezing, coughing. CARDIAC: Negative for chest pain, palpitations or tachycardia. GASTROINTESTINAL: Positive for right upper and left upper quadrant abdominal pain with sudden onset with nausea and vomiting. No constipation or diarrhea. GENITOURINARY: Positive for chronic nocturia, but negative for hematuria, dysuria or polyuria. SKIN: Negative for lesions or rashes. NEUROLOGIC: Negative for headache, weakness or seizures. PHYSICAL EXAMINATION: VITAL SIGNS: Temperature 99, heart rate 103, blood pressure 124/74, respiratory rate 18, O2 saturation 93% on 2 liters nasal cannula. GENERAL: This is a 69-year-old male patient who is lying in his hospital bed. He is in no acute distress. HEENT: Normocephalic, atraumatic. Pupils are equal and reactive. Oropharynx is clear. NECK: Supple without mass. RESPIRATORY: Diminished breath sounds throughout. CHEST: There is equal rise and fall of the chest with inspiration and expiration. CARDIOVASCULAR: Regular rate and rhythm. GASTROINTESTINAL: Abdomen is soft. It is only mildly tender across the epigastric area. Bowel sounds are positive. NEUROLOGIC: Awake and alert. LABORATORY: Urinalysis is unremarkable. We are still awaiting the COVID-19 results. All other labs and films are as per history of present illness. IMPRESSION: 1. Sepsis related to possible colitis with nausea, vomiting and abdominal pain. 2. Elevated liver function tests. 3. High risk for COVID-19, still awaiting results. 4. Gastroesophageal reflux disease. PLAN: The patient has been admitted to the hospital. I have continued him on Levaquin a the recommendation of his GI doctor, Dr. Jose, in [place]. I will also continue him on Flagyl. We will repeat his labs in the morning. If the patient clinically worsens or his liver enzymes continue to elevate, Dr. Jose agreed to take the patient in transfer. His cell phone number is [phone]. He has Lovenox for DVT prophylaxis. He also has Protonix for ulcer prophylaxis. I have given him fentanyl for pain and antiemetics for his nausea and vomiting. We will to monitor the patient closely and follow as needed. [id number]
[2020-01-29] MEDS ORDERED: ONDANSETRON INJ 4 MG/2 ML VIAL IV PRN (17:45)
[2020-01-29] MEDS: KCL 40 MEQ/D5 1/2NS 1,000 ML IVS PRN (17:56)
[2020-01-29] MEDS ORDERED: IV SET AND CAP CHANGE INJ INJ SCH (18:00)
[2020-01-29] MEDS ORDERED: PROMETHAZINE HCL INJ 25 MG in SODIUM CHLORIDE 0.9% 50ML 50 ML IVPB PRN (18:07)
[2020-01-29] MEDS: fentaNYL CITRATE INJ 50 MCG/ML 2 ML AMP IV PRN (18:15)
[2020-01-29] MEDS: SODIUM CHLORIDE 0.9% (FLUSH) 10 ML SYG IV SCH (21:33)
[2020-01-29] MEDS: diphenhydrAMINE HCL 25 MG CAP PO PRN (21:34)
[2020-01-29] MEDS: ENOXAPARIN SODIUM 40 MG/0.4 ML SYG SUBCU SCH (21:37)
[2020-01-30] MEDS ORDERED: metroNIDAZOLE IV PREMIX 500MG 100 ML IVPB ONE ×2 (00:07→07:18)
[2020-01-30] MEDS: metroNIDAZOLE IV PREMIX 500MG 500 MG in PREMIX BAG 1 BAG IVPB SCH ×4 (00:09→23:55)
[2020-01-30] MEDS: KCL 40 MEQ/D5 1/2NS 1,000 ML IVS PRN ×2 (05:39→19:27)
[2020-01-30] MEDS: PANTOPRAZOLE SODIUM IV 40 MG VIAL IV SCH (05:40)
[2020-01-30] MEDS ORDERED: levoFLOXacin 500MG IV 100 ML IVPB ONE (07:18)
[2020-01-30] MEDS ORDERED: levoFLOXacin 500MG IV 500 MG in PREMIX BAG 1 BAG IVPB SCH (09:00)
--- NOTE | 2020-01-30 11:14 | PN ---
SUPERVISING PHYSICIAN: Tenzin Urias MD DATE: 01/30/20 SUBJECTIVE: The patient states he is still having some abdominal cramping. He states that when he does that, he has pain in his back as well as some shortness of breath. He was noted to spike a fever last night of 100.0 as well. OBJECTIVE: VITAL SIGNS: Current blood pressure 116/67, heart rate 86, respiratory rate 17, temperature 99.4, oxygen saturation 92%. GENERAL: Mr. Shah is a 69-year-old male patient who is in mild distress secondary to abdominal discomfort. NEUROLOGIC: The patient is alert and oriented. LUNGS: Clear to auscultation bilaterally. CARDIOVASCULAR: Regular rate and rhythm. Normal S1, S2. ABDOMEN: Soft. Positive bowel sounds. He does have tenderness to the right upper and lower quadrants, left side not so much. EXTREMITIES: Lower extremities with no edema. Pulses 2+. Capillary refill is less than 2 seconds. LABORATORY: White count 19.6, hemoglobin 13.4, hematocrit 39.4, platelet count 187. Chemistry shows improvement in bilirubin from 1.8 to 1.4. AST is down to 46 from 104, ALT down to 67 from 108, alkaline phosphatase normal at 116. ASSESSMENT: 1. Right sided abdominal pain secondary to likely colitis, possible common bile duct spasms. 2. Abnormal liver function tests. 3. Gastroesophageal reflux disease. PLAN: He does have improvement in his liver function tests and he states overall he does feel a little bit better than he did yesterday, but he is still having abdominal cramping. I am going to give him a dose of Bentyl to see if that will ease the spasms. We will continue the current antibiotics. I will recheck labs tomorrow to ensure they are improving. He does have the physician, Dr. Jose in the [facility] that is available should the need arise, however, at this point, I do not see a need to transfer unless he starts to look worse. [facility][id number] [facility]
[2020-01-30] MEDS: fentaNYL CITRATE INJ 50 MCG/ML 2 ML AMP IV PRN ×4 (11:16→23:54)
[2020-01-30] MEDS: DICYCLOMINE HCL INJ 20 MG/2 ML AMP IM SCH ×2 (11:18→16:25)
[2020-01-30] MEDS ORDERED: MEROPENEM 1 GM VIAL IVPB ONE (13:49)
[2020-01-30] MEDS ORDERED: SODIUM CHL 0.9% 50ML MIN-BAG+ 50 ML IVPB ONE (13:50)
[2020-01-30] MEDS: MEROPENEM 1 GM in SODIUM CHL 0.9% 50ML MIN-BAG+ 50 ML IVPB SCH ×2 (13:58→21:25)
[2020-01-30] MEDS ORDERED: ACETAMINOPHEN 325 MG TAB PO PRN (17:46)
[2020-01-30] MEDS: DICYCLOMINE HCL 20 MG TAB PO SCH ×2 (18:31→23:56)
[2020-01-30] MEDS: diphenhydrAMINE HCL 25 MG CAP PO PRN (20:22)
[2020-01-30] MEDS: ENOXAPARIN SODIUM 40 MG/0.4 ML SYG SUBCU SCH (20:23)
[2020-01-30] MEDS: SODIUM CHLORIDE 0.9% (FLUSH) 10 ML SYG IV SCH ×2 (20:54)
[2020-01-30] MEDS ORDERED: metroNIDAZOLE IV PREMIX 500MG 500 MG in PREMIX BAG 1 BAG IVPB SCH (23:30)
[2020-01-31] MEDS: MEROPENEM 1 GM in SODIUM CHL 0.9% 50ML MIN-BAG+ 50 ML IVPB SCH ×3 (05:14→21:05)
[2020-01-31] MEDS: PANTOPRAZOLE SODIUM IV 40 MG VIAL IV SCH (05:59)
[2020-01-31] MEDS: KCL 40 MEQ/D5 1/2NS 1,000 ML IVS PRN (05:59)
[2020-01-31] MEDS: DICYCLOMINE HCL 20 MG TAB PO SCH ×3 (05:59→17:57)
[2020-01-31] MEDS ORDERED: DICYCLOMINE HCL 20 MG TAB ONE (08:02)
[2020-01-31] MEDS: metroNIDAZOLE IV PREMIX 500MG 500 MG in PREMIX BAG 1 BAG IVPB SCH ×2 (08:11→16:25)
[2020-01-31] MEDS ORDERED: MAGNESIUM SULFATE PREMIX 2GM 2 GM in PREMIX BAG 1 BAG IVPB ONE (08:13)
[2020-01-31] MEDS: SODIUM CHLORIDE 0.9% (FLUSH) 10 ML SYG IV SCH ×2 (08:27→21:03)
--- NOTE | 2020-01-31 10:41 | PN ---
SUPERVISING PHYSICIAN: Tenzin Urias MD DATE: 01/31/20 SUBJECTIVE: The patient states he feels much better today with no abdominal pain or cramping. He has not gotten any fentanyl for the last 8 hours or so. OBJECTIVE: VITAL SIGNS: Blood pressure 139/76, heart rate 73, respiratory rate 18, temperature 98.8, oxygen saturation 96%. GENERAL: Mr. Shah is a 69-year-old male patient who is in no active distress. NEUROLOGIC: The patient is alert. LUNGS: Clear to auscultation bilaterally. CARDIOVASCULAR: Regular rate and rhythm. ABDOMEN: Soft. Positive bowel sounds. He does have a little bit of tenderness on the right side of his abdomen, but no rebound. EXTREMITIES: Lower extremities with no edema. Pulses 2+. Capillary refill is less than 2 seconds. LABORATORY: White count 6.7, hemoglobin 13.5, hematocrit 39.3, platelet count 168. Chemistry shows sodium 138, potassium 4.0, chloride 108, CO2 22, BUN 11, creatinine 1.09. Glucose 108, calcium 8.3, bilirubin 1.5, magnesium 1.7. AST normal at 28, ALT normal at 36, alkaline phosphatase normal at 119. ASSESSMENT: 1. Right sided abdominal pain secondary to likely colitis, possible common bile duct spasms. 2. Klebsiella bacteremia. 3. Abnormal liver function tests. 4. Gastroesophageal reflux disease. 5. Hypomagnesemia. PLAN: Today he is improved symptomatically along with his labs showing a normal white count. Liver function tests are normal except for the bilirubin. I did speak with Dr. Jose in the [facility] regarding the patient's findings. I did speak with him about the positive blood cultures as well as the improving liver function tests and the normalized white count. His recommendation was for him to make an appointment for 2 weeks and he would likely repeat an ERCP, but given the fact that his liver function tests have normalized and the white count has normalized as well as the patient clinical improving, he does not think anything needs to happen acutely. I will advance his diet today to a low-fat diet and if he does well, he can probably be discharged tomorrow. We will need to complete a 2-week regimen of antibiotics. Given the sensitivities, I recommend the patient have Invanz daily as an outpatient. [facility][id number] [facility]
[2020-01-31] MEDS: ENOXAPARIN SODIUM 40 MG/0.4 ML SYG SUBCU SCH (21:03)
[2020-01-31] MEDS: diphenhydrAMINE HCL 25 MG CAP PO PRN (21:04)
[2020-02-01] MEDS: DICYCLOMINE HCL 20 MG TAB PO SCH ×3 (00:25→12:26)
[2020-02-01] MEDS: metroNIDAZOLE IV PREMIX 500MG 500 MG in PREMIX BAG 1 BAG IVPB SCH ×2 (00:25→08:26)
[2020-02-01] MEDS: MEROPENEM 1 GM in SODIUM CHL 0.9% 50ML MIN-BAG+ 50 ML IVPB SCH (05:23)
[2020-02-01 05:31] VITALS: O2SAT 96
[2020-02-01] MEDS: PANTOPRAZOLE SODIUM IV 40 MG VIAL IV SCH (06:00)
[2020-02-01] MEDS: SODIUM CHLORIDE 0.9% (FLUSH) 10 ML SYG IV SCH (12:25)
[2020-02-01] MEDS ORDERED: ERTAPENEM 1 GM VIAL IM SCH (12:30)
[2020-02-01 15:49] VITALS: BP 123/76; TEMP 99.1
--- NOTE | 2020-02-03 09:14 | DS ---
SUPERVISING PHYSICIAN: Tenzin Urias MD ADMISSION DIAGNOSES: 1. Sepsis related to possible colitis with nausea, vomiting and abdominal pain. 2. Elevated liver function tests. 3. High risk for COVID-19, still awaiting results. 4. Gastroesophageal reflux disease. DISCHARGE DIAGNOSES: 1. Right sided abdominal pain secondary to likely colitis, possible common bile duct spasms. 2. Klebsiella bacteremia. 3. Abnormal liver function tests. 4. Gastroesophageal reflux disease. 5. Hypomagnesemia. HISTORY OF PRESENT ILLNESS: : This is a 69-year-old male patient who has no significant medical history other than gastroesophageal reflux disease who presented to the Emergency Room with complaints of abdominal pain. He had been in his usual state of health and he woke up at 4 AM today with a sudden onset of abdominal pain located across the upper abdomen. It was sharp with muscle like cramps. It radiated to his right upper quadrant and there was associated nausea with mild green emesis, fever and chills and mild shortness of breath. There was no chest pain. He actually had his gallbladder out about 3 years ago in [place]. He has had several episodes of similar pain and has been seeing a GI doctor in the [facility], Dr. Jose. He has had issues with his common bile duct since. The ER doctor called Dr. Jose and he had an ERCP about a month ago in [place] that was unremarkable. His initial vital signs showed temperature 96, heart rate 119, blood pressure 149/77, respiratory rate 20, O2 saturation 94%. Labs showed WBC 16,300, hemoglobin 14.9, hematocrit 41.5. He had a left shift on his differential. Chemistries are basically unremarkable with the exception of his potassium was slightly low at 3.4. Lactic acid 1.3, total bilirubin 1.8, direct bilirubin 0.5, indirect bilirubin 1.3. AST 104, ALT 108, alkaline phosphatase 149. The ER doctor voiced his concerns about his elevated liver enzymes as the patient has not had those elevated in his past visits to this hospital. Blood cultures were drawn. Chest x-ray was done and showed a mild elevated right hemidiaphragm with minimal hazy density right lower lung field, perihilar region suggesting minimal inflammation or scarring. Otherwise negative one-view chest. Abdomen and pelvis CT showed 1) Prior cholecystectomy with normal caliber biliary ductal system with tiny amount of air in the biliary tract suggesting prior sphincterotomy. This has been noted on previous exams. 2) Bilateral parapelvic renal cysts with nonobstructing 2 small calculi right kidney without hydronephrosis. 3) Surgical changes suggesting prior probable appendectomy. 4) Submucosal edema involving the right colon above the cecum to the level of the hepatic flexure. An element of colitis should be considered without perforation or abscess. 5) Prostatic hypertrophy without evidence of bladder outlet obstruction or marked distention of the bladder. 6) Stable mild scarring and/or fibrotic changes posterior right lung base, little change from 2019 examination, but new from October 2017 study. Interval scarring and pneumonitis suspected. All the findings were given to Dr. Jose and he felt the patient could be admitted to the hospital and his liver functions watched. He also said he would gladly accept the patient in transfer if the liver enzymes continued to elevate or the clinical status of the patient worsened. I was called for hospital admission. I did ask for a COVID-19 test, but that inadvertently was not done and he was admitted to the hospital in stable condition. HOSPITAL COURSE: Mr. Shah was admitted secondary to colitis with Klebsiella bacteremia. He was treated with meropenem, after several days clinically he was showing good improvement. Klebsiella pneumoniae was showing to be sensitive to everything but ampicillin. He clinically improved well enough to continue with outpatient management. Arrangements had been made to continue with outpatient antibiotics with Invanz for another 14 days and to followup with Dr. Jose, his product support analyst. LABORATORY STUDIES: White count was 6,700 at discharge. hemoglobin 13.5, hematocrit 39.3, platelet count 116,000. Differential showed to be without a left shift. His chemistries on discharge showed normal electrolytes, amylase and lipase normal. BUN 11, creatinine 1.101, bilirubin was a little elevated at 1.5 but down from 1.8 on admission. Magnesium was 1.7. Urinalysis within normal limits. MICROBIOLOGY: All blood cultures grew out a Klebsiella pneumonia that was sensitive to all but ampicillin. RADIOLOGY: Abdominal/pelvic CT in the Emergency Room prior to admission and per radiology interpretation showed submucosal edema involving the right colon and above the cecum to the level of the hepatic flexor, an element of colitis should be considered without perforation or abscess. Also was noted to have prostatic hypertrophy without evidence of bladder outlet obstruction or marked distention of the bladder. Stable mild scarring and/or fibrotic changes, posterior right lung. Please see those reports for full details. PHYSICAL EXAMINATION ON DISCHARGE: VITAL SIGNS: Temperature 99.1, pulse 74, blood pressure 123/76, respirations 18, oxygen saturation 96% on room air. GENERAL: The patient is resting comfortably. CHEST: Clear to auscultation. HEART: Regular rate and rhythm. ABDOMEN: Soft, non-tender, positive bowel sounds. EXTREMITIES: Without edema. NEUROLOGIC: Alert and oriented x3. PLAN: Mr. Shah was discharged to continue with outpatient management with infusion of Invanz for additional 14 days. He was infused in clinic. He is to resume his previous medications. He is to resume his previous diet as tolerated and increase his activity as tolerated. He is to followup with Dr. Rivera on February 06 at [address] Jose which his has made appointment. He started infusion on 02/01 for a total of 14 days with Invanz one gram. Condition on discharge was stable and improved. DISPOSITION: The patient was discharged home. [facility][id number] [facility]
== END 2020-02-01 13:50 | disposition home or self-care (01) | DRG 872 ==
LOC: ER 11:05 → MS 16:34 → OBSVTOIN 16:34
PROVIDERS: ADMIT Nurse Practitioner Acute Care; ATTEND Nurse Practitioner Family
PROC: BW211ZZ Computerized Tomography (CT Scan) of Abdomen and Pelvis using Low Osmolar Contrast (ICD-10-PCS; principal; 2020-01-29)
DX: A41.89 Other specified sepsis (principal); B96.1 Klebsiella pneumoniae [K. pneumoniae] as the cause of diseases classified elsewhere; R74.8 Abnormal levels of other serum enzymes; K52.9 Noninfective gastroenteritis and colitis, unspecified; K21.9 Gastro-esophageal reflux disease without esophagitis; E83.42 Hypomagnesemia; K83.8 Other specified diseases of biliary tract; H35.30 Unspecified macular degeneration; I10 Essential (primary) hypertension; Z90.49 Acquired absence of other specified parts of digestive tract; Z88.0 Allergy status to penicillin

== ENCOUNTER 2020-05-15 20:50 | Observation (INO) | payer MEDICARE ==
[2020-05-15] MEDS ORDERED: PROMETHAZINE HCL INJ 12.5 MG in SODIUM CHLORIDE 0.9% 50ML 50 ML IVPB ONE (21:01)
[2020-05-15] MEDS ORDERED: MEROPENEM 1 GM in SODIUM CHL 0.9% 50ML MIN-BAG+ 50 ML IVPB ONE (21:18)
--- NOTE | 2020-05-15 21:19 | ED.PDOC ---
History of Present Illness - General Chief Complaint: Abdominal Pain Stated Complaint: hx. common bile backing up, chills, back/abd pain Time Seen by Provider: 05/15/20 21:00 Information Source: patient, RN notes reviewed, Vital Signs reviewed, family Exam Limitations: no limitations - History of Present Illness Initial Comments: PATIENT PRESENTS WITH APPROXIMATELY TWO HOUR HISTORY OF ABD PAIN, SHAKING RIGORS, DIFFUSE ARTHRALGIAS. HE IS 2 YEARS S/P CHOLECYSTECOMY, HAS HAD COMPLICATED POST OP COURSE WITH CBD STRICTURE AND SEVERAL BOUTS OF WHAT SOUNDS TO BE CHOLANGITIS, HE CURRENTLY HAS A GBD STINT IN PLACE, IT WAS SCHEDULED TO BE REMOVED NEXT MONTH. HE IS C/O INTENSE NAUSEA WELL THE ABD PAIN. Abdominal Pain Onset Location: epigastric Pain Radiation: no radiation Quality: severe Improving Factors: nothing Worsening Factors: nothing Review of Systems - Review of Systems Constitutional: States: chills, diaphoresis, weakness EENTM: States: no symptoms reported Respiratory: States: no symptoms reported Cardiology: States: no symptoms reported Gastrointestinal/Abdominal: States: see HPI Genitourinary: States: no symptoms reported Musculoskeletal: States: joint pain, muscle pain Skin: States: no symptoms reported Neurological: States: no symptoms reported Past Medical History (General) - Patient Medical History Hx Seizures: No Hx Stroke: No Hx Dementia: No Hx Asthma: No Hx of COPD: No Hx Cardiac Disorders: No Hx Congestive Heart Failure: No Hx Pacemaker: No Hx Hypertension: No Hx Thyroid Disease: No Hx Diabetes: No Hx Gastroesophageal Reflux: No Hx Renal Disease: No Hx Cancer: No Hx of HIV: No Hx Hepatitis C: No Hx MRSA: No MRSA Source:: Wound Surgical History: appendectomy, cholecystectomy - Vaccination History Hx Tetanus, Diphtheria Vaccination: Yes Hx Influenza Vaccination: Yes Hx Pneumococcal Vaccination: Yes - Social History Hx Tobacco Use: No Hx Alcohol Use: No Hx Substance Use: No Hx Physical Abuse: No Hx Emotional Abuse: No Family Medical History - Family History Mother Family History: Unknown Living Status: Unknown Physical Exam - Physical Exam General Appearance: Alert, Well Developed, Well Groomed, Well Hydrated, Well Nourished Neck: non-tender, full range of motion, supple, normal inspection, carotid bruit, limited range of motion Respiratory: chest non-tender, lungs clear, normal breath sounds, no respiratory distress, no accessory muscle use Cardiovascular/Chest: normal peripheral pulses, regular rate, rhythm, no edema, no gallop, no JVD Gastrointestinal/Abdominal: normal bowel sounds, soft, no organomegaly, tenderness - EPIGASTRIC AND RUQ Neurologic: no motor/sensory deficits, alert, normal mood/affect, oriented x 3 Skin Exam: normal color, warm/dry, cyanosis Progress - Progress Progress: 05/15/20 21:16 MEROPENEM WAS CHOSEN ANTIBIOTIC BECAUSE HE PREVIOUSLY RECEIVED IT FOR PRESUMED CHOLANGITIS, HIS SYMPTOMS TODAY ARE VERY SIMILAR TO THOSE PRESENTING SYMPTOMS PREVIOUSLY 05/15/20 23:43 PATIENT HAS HISTORY OF POSTCHOLECYSTECTOMY STENOSIS OF THE GBD, HAS UNDERWENT SPINCTEROTOMY AND MULTIPLE STINT PLACEMENT, HE CURRENTLY HAS A STINT IN PLACE. PATIENT HAS BEEN ADMITTED HERE ON 2 OCCASIONS FOR NEAR IDENTICAL SYMPTOMS THAT SOUND CONSISTENT WITH CHOLANGITIS. PATIENT HAS RESPONDED WELL TO ANTIBIOTICS IN THE PAST. PATIENT'S GI IS DR GUILLEN IN [place]. PAGED DR CAMARENA, PARTER OF DR GUILLEN AT [id number]. 05/16/20 00:00 DR CAMARENA RETURNED CALL AND CONFIRMED THAT IT WOULD BE PRUDENT TO TREAT HERE WITH IV ABX AND LONG HE RESPONDED TO TREATMENT AND DID NOT WORSEN HE COULD BE TREATED HERE. SHE STATES THEY WOULD BE MORE THAN HAPPY TO TAKE IN TRANSFER IF HE HAS ANY PROBLEMS SUCH NO RESOLUTION OF PAIN, OR WORSENING ELEVATION OF LIVER ENZYMES. 05/16/20 00:07 DISCUSSED WITH SUNSHINE, SHE IS HAPPY TO ADMIT OUR PATIENT, THANK YOU SUNSHINE. PATIENT FEELING MUCH BETTER AFTER DILAUDID AND ANTIBIOTICS. DIS Departure - Departure Clinical Impression: Cholangitis, Transaminitis Time of Disposition: 00:07 Disposition: Admit Patient Departure Forms: ED Discharge - Pt. Copy, Patient Portal Self Enrollment Instructions: DI for Abdominal Pain-Adult Referrals: Hiren Rivera III, MD [Primary Care Provider] - 1-2 Weeks Home Medications: Ambulatory Orders Ertapenem [INVanz] 1 gm IM DAILY #14 vial 02/01/20
[2020-05-15] MEDS ORDERED: LACTATED RINGERS 2,000 ML IVS ONE (21:28)
[2020-05-15] MEDS ORDERED: LACTATED RINGERS 1,000 ML IVS ONE (21:29)
[2020-05-15] MEDS ORDERED: HYDROmorphone HCL INJ 2 MG/ML VIAL ONE (22:46)
[2020-05-15] MEDS ORDERED: ONDANSETRON INJ 4 MG/2 ML VIAL IV ONE (22:46)
[2020-05-15] MEDS ORDERED: HYDROmorphone HCL INJ 2 MG/ML VIAL IV ONE (22:46)
--- NOTE | 2020-05-15 22:54 | CT ---
EXAM DESCRIPTION: Abdomen w/Contrast 05/15/2020 10:46 PM MEASUREMENT DEPARTMENT CHIEF CLERK CLINICAL HISTORY: 70 years, Male, abd pain COMPARISON: 01/29/2020 PROCEDURE: Contrast-enhanced images of the abdomen and pelvis were performed utilizing 5 mm slice thickness at 5 mm interval reconstruction from the lung bases to the iliac crest after the administration of IV contrast. No dosing amount was provided for interpretation. In addition multiplanar reformats in the coronal and sagittal plane were obtained and reviewed. An individualized dose optimization technique, Automated Exposure Control, was utilized for the performed procedure. FINDINGS: The lung bases demonstrate to be clear. Minimal dependent atelectatic changes right lung base with a slight right diaphragmatic elevation. The heart is not enlarged. The liver, pancreas, spleen and adrenal glands demonstrate to be unremarkable, no focal lesions are noted. Clips within the gallbladder fossa corresponding to previous cholecystectomy. There is a interval placement of a right biliary stent in good position. The kidneys demonstrate normal uptake of contrast media. Again there is bilateral parapelvic cyst renal cyst midpole right renal calculus measuring 4.6 cm on image 46. Grossly the unopacified stomach, visualized portions of the small bowel and large bowel demonstrate to be within normal limits. Fecal residue as well as motion and underdistention within the large bowel limits the evaluation. Previous described area of questionable mucosal thickening within the splenic flexure is less defined. Again noted are the presence of clips within the right lower quadrant most likely corresponding to previous appendectomy. The aorta demonstrate to be within normal limits. There is no abdominal retroperitoneal lymphadenopathy. There is no evidence for abdominal ascites. The rest of the soft tissue and bony structures are within normal limits. IMPRESSION: MOTION ARTIFACT LIMITS THE EVALUATION. STATUS POST CHOLECYSTECTOMY. INTERVAL PLACEMENT OF INTERNAL BILIARY STENT IN GOOD POSITION. NO SIGNIFICANT INTRAHEPATIC BILIARY DUCT DILATATION. BILATERAL PARAPELVIC RENAL CYSTS. RIGHT NEPHROLITHIASIS WITH NO EVIDENCE FOR HYDRONEPHROSIS. STATUS POST APPENDECTOMY. Electronically signed by: Hiren Mendenhall MD 05/15/2020 10:52 PM MEASUREMENT DEPARTMENT CHIEF CLERK
--- NOTE | 2020-05-16 01:03 | HP ---
SUPERVISING PHYSICIAN: Brent Tucker M.D. CHIEF COMPLAINT: Abdominal pain. HISTORY OF PRESENT ILLNESS: This is a 70 year-old male patient that presented to the Emergency Room after about 2 hours of severe abdominal pain with shaking rigors. He had a cholecystectomy about 3 years ago, but has had some complicated postoperative issues with strictures and he has required multiple stents. He has had cholangitis and has actually been admitted to the hospital several times due to sepsis related to both cholangitis as well as colitis. In the past if he had a stent in place, he had no abdominal pain, but once the stent was removed he would get severe abdominal pains with nausea and vomiting approximately once a month that would increase to the point he had to go in and get a stent. This time he does have the stent and was actually scheduled to have it removed next month per his GI doctor, Dr. Jose, in [place]. He came to the Emergency Room. He had intense severe abdominal pain with nausea and vomiting. His initial vital signs had a low-grade temperature of 99.3, heart rate 109, blood pressure 144/80, respiratory rate 22, O2 saturation 98%. Initial labs showed a WBC of 12,100 with hemoglobin 14.3, hematocrit 42.3. He had a left shift on his differential. Electrolytes were basically within normal limits with the exception of his potassium was slightly low at 3.2. Lactate was 2.5.. AST 49, ALT 67, alkaline phosphatase 181. He does have a significant history of elevated liver function tests. He was given fluids in the Emergency Room as well as antiemetics, pain medication with Dilaudid and given Meropenem. I was called for hospital admission. PAST MEDICAL HISTORY: 1. Right lung collapse in 1952. 2. Gastroesophageal reflux disease. 3. Macular degeneration. He is legally blind. 4. Mild hypertension. 5. Cholangitis secondary to postoperative complications of cholecystectomy 3 years ago. PAST SURGICAL HISTORY: 1. Appendectomy. 2. Right knee surgery. 3. Cataracts. 4. Cholecystectomy. OUTPATIENT MEDICATIONS: Per the EMR and awaiting verification. ALLERGIES: PENICILLIN. FAMILY HISTORY: Positive for Alzheimer's, breast cancer, uterine cancer and Crohn's disease. SOCIAL HISTORY: He is retired. He is . He has 2 children. There is no history of tobacco, ETOH or illicit drug use. REVIEW OF SYSTEMS: GENERAL: Positive for fever, chills and rigors. Negative for weight changes. HEENT: Negative for sinus symptoms, ear pain, vision changes or sore throat. RESPIRATORY: Negative for wheezing, coughing or shortness of breath. CARDIAC: Negative for chest pains, palpitations or tachycardia. GASTROINTESTINAL: As per History of Present Illness. GENITOURINARY: Negative for hematuria, dysuria or polyuria. SKIN: Negative for lesions or rashes. NEUROLOGIC: Negative for headaches, dizziness or seizures. PHYSICAL EXAMINATION: VITAL SIGNS: Temperature 97.2, heart rate 61, blood pressure 95/52, respiratory rate 18, O2 saturation 97% on 2 liters nasal cannula. GENERAL: This is a 70 year-old male patient who is lying in his hospital bed. He is in no acute distress. HEENT: Normocephalic, atraumatic. Pupils are equal and reactive. Oropharynx is clear. NECK: Supple without mass. RESPIRATORY: Essentially clear to auscultation bilaterally. CARDIAC: Regular rate and rhythm. GASTROINTESTINAL: Abdomen is soft. Mildly but diffusely tender in the epigastric area. Bowel sounds are positive. NEUROLOGIC: Awake, alert and oriented times three. Cranial nerves II-XII are grossly intact as tested. SKIN: [place], warm and dry. LABORATORY: Followup WBCs are 11,200 with hemoglobin 12.5, hematocrit 36.6. Electrolytes are within normal limits with the exception of his calcium being slightly low at 8.3. Followup lactic acid is 0.7. AST is now 30, ALT 47, alkaline phosphatase 129. Urinalysis is unremarkable. Blood cultures are pending. Abdomen CT showed motion artifact on the CT evaluation status post cholecystectomy. Interval placement of internal biliary stent in good position. No significant intrahepatic biliary duct dilatation. Bilateral parapelvic renal cysts. Right nephrolithiasis with no evidence for hydronephrosis. Status post appendectomy. ASSESSMENT: 1. Sepsis related to cholangitis with an admitting heart rate of 109, respiratory rate of 22, WBC of 12,100 and lactic acid of 2.5. 2. Elevated transaminase. 3. Gastroesophageal reflux disease. 4. Hypertension. PLAN: The patient has been admitted to the hospital and continued on Merrem. This morning he was NPO until I spoke to his inspector open die, Dr. Jose. He recommended that the patient continue on his IV antibiotics and advance his diet slowly as tolerated. One he tolerates his diet he can be discharged home on 10 days of Levaquin. The patient is recommended to call his office as the patient most likely needs that stent removed. I have discussed this with the patient at length as well as his daughter. He agrees with the plan of care. His home medications will be restarted as soon as they are verified. I have advanced his diet to clear liquid. He will have Protonix for ulcer prophylaxis and Dilaudid for pain. Will continue with the Meropenem until discharge and then he will start his Levaquin. [id number] [facility]
[2020-05-16] MEDS ORDERED: HYDROmorphone HCL INJ 2 MG/ML VIAL IV PRN (01:30)
[2020-05-16] MEDS ORDERED: ONDANSETRON INJ 4 MG/2 ML VIAL IV PRN (01:31)
[2020-05-16] MEDS ORDERED: PROMETHAZINE HCL INJ 12.5 MG in SODIUM CHLORIDE 0.9% 50ML 50 ML IVPB PRN (01:32)
[2020-05-16] MEDS ORDERED: PROMETHAZINE HCL INJ 25 MG in SODIUM CHLORIDE 0.9% 50ML 50 ML IVPB PRN (01:34)
[2020-05-16] MEDS: KCL 20MEQ/D5 1/2NS 1,000 ML IVS PRN ×2 (01:39→19:03)
[2020-05-16] MEDS ORDERED: SODIUM CHLORIDE 0.9% (FLUSH) 10 ML SYG IV PRN (07:43)
[2020-05-16] MEDS ORDERED: IV SET AND CAP CHANGE INJ INJ SCH (08:00)
[2020-05-16] MEDS ORDERED: MEROPENEM 500 MG VIAL IVPB ONE (08:44)
[2020-05-16] MEDS ORDERED: SODIUM CHL 0.9% 50ML MIN-BAG+ 50 ML IVPB ONE (08:44)
[2020-05-16] MEDS: PANTOPRAZOLE SODIUM IV 40 MG VIAL IV SCH (08:46)
[2020-05-16] MEDS: MEROPENEM 1 GM in SODIUM CHL 0.9% 50ML MIN-BAG+ 50 ML IVPB SCH ×3 (08:46→23:35)
[2020-05-16] MEDS: SODIUM CHLORIDE 0.9% (FLUSH) 10 ML SYG IV SCH ×2 (08:59→20:36)
[2020-05-16] MEDS ORDERED: BIFIDOBACTERIUM INFANTIS 4 MG CAP ONE (19:13)
[2020-05-16] MEDS: BIFIDOBACTERIUM INFANTIS 4 MG CAP PO SCH (20:35)
[2020-05-16] MEDS: TEMAZEPAM 15 MG CAP PO PRN (21:07)
[2020-05-17] MEDS: KCL 20MEQ/D5 1/2NS 1,000 ML IVS PRN (03:20)
[2020-05-17] MEDS: PANTOPRAZOLE SODIUM IV 40 MG VIAL IV SCH (06:03)
[2020-05-17] MEDS ORDERED: SODIUM CHL 0.9% 50ML MIN-BAG+ 50 ML IVPB ONE (06:54)
[2020-05-17] MEDS ORDERED: MEROPENEM 500 MG VIAL IVPB ONE (06:54)
[2020-05-17] MEDS: BIFIDOBACTERIUM INFANTIS 4 MG CAP PO SCH ×2 (08:03→20:28)
[2020-05-17] MEDS: MEROPENEM 1 GM in SODIUM CHL 0.9% 50ML MIN-BAG+ 50 ML IVPB SCH ×2 (08:03→16:54)
[2020-05-17] MEDS: SODIUM CHLORIDE 0.9% (FLUSH) 10 ML SYG IV SCH ×2 (08:09→20:30)
--- NOTE | 2020-05-17 15:19 | PN ---
SUPERVISING PHYSICIAN: Brent Tucker MD DATE: 05/17/20 SUBJECTIVE: The patient says he feels much better today. He is not having any pain. He has ruiz no nausea or vomiting, no chest pain. he remains afebrile. The patient is tolerating a diet, currently on full liquids. OBJECTIVE: VITAL SIGNS: Temperature 98.1, pulse 74, blood pressure 115/76, respirations 18, oxygen saturation 97% on room air. GENERAL: Patient looks to be resting conformably. He is in no acute distress. He is alert. CHEST: Clear to auscultation. HEART: Regular rate and rhythm. ABDOMEN: Soft, non-tender, positive bowel sounds. EXTREMITIES: Without edema. NEUROLOGIC: He is alert and oriented x3. LABORATORY: White count 9,400, hemoglobin 13.3, hematocrit 39.2, platelet count 272,000. Differential shows to be without a left shift. Chemistries show normal electrolytes. Creatinine 0.97. Liver functions all within normal limits. MICROBIOLOGY: Blood cultures remain negative at 24 hours. RADIOLOGY: No additional radiographic studies. ASSESSMENT: 1. Sepsis related to cholangitis with an admitting heart rate of 109, respiratory rate of 22, WBC of 12,100 and lactic acid of 2.5. 2. Elevated transaminase. 3. Gastroesophageal reflux disease. 4. Hypertension. PLAN: I will continue with meropenem antibiotic coverage at this point. As blood cultures are negative for 24 hours and if they remain negative overnight and he is still tolerating diet, we will plan to discharge him to home. He is going to followup with his occupational health nurse supervisor, Dr. Jose, this coming week. He will be started on oral Levaquin tomorrow if he does discharge. Until we can transition patient to outpatient management, we will continue to monitor and treat as needed. #[id number] [facility]
[2020-05-17] MEDS ORDERED: ENOXAPARIN SODIUM 40 MG/0.4 ML SYG SUBCU ONE (19:57)
[2020-05-17] MEDS: TEMAZEPAM 15 MG CAP PO PRN (20:28)
[2020-05-17] MEDS ORDERED: ENOXAPARIN SODIUM 40 MG/0.4 ML SYG SUBCU SCH (21:00)
[2020-05-18] MEDS: MEROPENEM 1 GM in SODIUM CHL 0.9% 50ML MIN-BAG+ 50 ML IVPB SCH ×2 (00:26→09:03)
[2020-05-18] MEDS ORDERED: CYCLOBENZAPRINE HCL 5 MG TAB ONE ×2 (03:05→13:46)
[2020-05-18] MEDS: CYCLOBENZAPRINE HCL 5 MG TAB PO PRN ×2 (03:06→13:47)
[2020-05-18] MEDS ORDERED: KETOROLAC TROMETHAMINE INJ 30 MG/ML VIAL IV ONE (04:56)
[2020-05-18] MEDS ORDERED: KETOROLAC TROMETHAMINE INJ 30 MG/ML VIAL ONE (04:59)
[2020-05-18] MEDS: PANTOPRAZOLE SODIUM IV 40 MG VIAL IV SCH (06:06)
--- NOTE | 2020-05-18 06:50 | CT ---
EXAM DESCRIPTION: CT of the cervical spine without contrast. CLINICAL HISTORY: possible neck trauma prior to hospitalization COMPARISON: None available TECHNIQUE: Axial CT of the cervical spine obtained without contrast. FINDINGS: Straightening of the cervical lordosis may be secondary to patient positioning. The atlantoaxial, atlantodental, and occipitoatlantal intervals are preserved. No fracture identified. Vertebral body height preserved. Prevertebral soft tissues are unremarkable. Mild to moderate multilevel loss of intervertebral disc height with endplate spondylosis, facet arthropathy, and uncovertebral spurring. Mild osseous neural foraminal narrowing at C5/6 and C6/7. Visualized skull base is intact. No fracture of the visualized facial bones. Visualized mastoid air cells and paranasal sinuses are well aerated. Visualized thyroid is unremarkable. No cervical lymphadenopathy. No pneumothorax in the visualized lung apices. IMPRESSION: 1. No acute fracture or subluxation of the cervical spine. 2. Multilevel degenerative change of the cervical spine. This exam was performed according to our departmental dose-optimization program, which includes automated exposure control, adjustment of the mA and/or kV according to patient size and/or use of iterative reconstruction technique. Electronically signed by: Jamie Bolaños 05/18/2020 6:49 AM CLUBHOUSE MANAGER
[2020-05-18] MEDS: BIFIDOBACTERIUM INFANTIS 4 MG CAP PO SCH (09:03)
[2020-05-18] MEDS: SODIUM CHLORIDE 0.9% (FLUSH) 10 ML SYG IV SCH (09:04)
[2020-05-18 13:57] VITALS: BP 133/78; TEMP 98.3; O2SAT 95
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
== END 2020-05-18 14:10 | disposition home or self-care (01) ==
LOC: ER 20:50 → MS 20:51 → UNDOADMOB 05-16 01:02 → MS 05-16 01:02 → UNDOADMOB 05-16 01:28 → UNDODISOB 05-18 14:10
PROVIDERS: ADMIT Nurse Practitioner Acute Care; ATTEND Nurse Practitioner Family
DX: A41.9 Sepsis, unspecified organism (principal); K83.09 Other cholangitis; R74.01 Elevation of levels of liver transaminase levels; E87.6 Hypokalemia; E83.51 Hypocalcemia; K21.9 Gastro-esophageal reflux disease without esophagitis; I10 Essential (primary) hypertension; H54.8 Legal blindness, as defined in USA; M47.812 Spondylosis without myelopathy or radiculopathy, cervical region; M48.02 Spinal stenosis, cervical region; Z20.822 Contact with and (suspected) exposure to COVID-19; Z96.89 Presence of other specified functional implants; Z90.49 Acquired absence of other specified parts of digestive tract; Z88.0 Allergy status to penicillin
CPT/HCPCS: 96366 ×3; 96367 ×2; 96365; 96375 ×3; 96376 ×2; 96372; J1170; J1885; J2405; J2550; A4216 ×3; J1650; J2185 ×8; J7050 ×8; J7120 ×2; 80053 ×3; 36415 ×5; 81001; 85025 ×3; 87040 ×2; 83690; 83735; 87324; 83605 ×2; 74160; 72125; 94760 ×5; 99285; 93005; 87449; 87635